=== PATIENT | female | born 1980 | race Caucasian/White ===

== ENCOUNTER 2020-03-22 10:52 | Emergency (ER) | payer OTHER, SELFPAY ==
[2020-03-22 10:54] VITALS: BP 139/107; PULSE 93; RESP 18; TEMP 36.2; O2SAT 98; BMI 40.7
--- NOTE | 2020-03-22 11:43 | ED.DCSUM_ITS ---
- ER Visit Summary Date of Service: 03/22/20 Chief Complaint: Laceration History of Present Illness: The patient is a 39 F who is right-hand dominant. She is unsure when her last tetanus shot was. She works at [employer]. She was washing a fryer which had been in the sink soaking overnight and it cut her right index finger. She reports she has an aching pain is 3 of 10 at worst and she is pain-free currently. Is worsened by movement and relieved by rest. Physical Examination: Vitals: Stable. Afebrile. General: Well-nourished and well-developed. Head: Normocephalic atraumatic. Neck: Supple, no lymphadenopathy. No JVD. Nontender. Cardiovascular: Regular rate and rhythm. No murmurs. Respiratory: No respiratory distress. Clear to auscultation bilaterally. Abdominal: Soft, nontender, nondistended, normal bowel sounds. No guarding, rebound, or peritoneal signs. Back: Nontender. Extremities: 1 cm superficial laceration over the DIP joint anteriorly. She is neuro vas intact distal to this Skin: Normal color, no rash. Neurologic: Alert and oriented ?3. Cranial nerves II through XII are intact. Normal strength and sensation. Psych: Normal affect. Emergency Department Course and Treatment: I had a prolonged discussion the patient by treatment options. She is decided to let this heal by secondary intention. I feel that is a reasonable course of action. Her tetanus was updated. Treatment Plan: Patient be discharged instructions to keep the wound clean, dry, and covered. Follow-up [facility] in 1 week for another exam. Return to the emergency department for any worsening symptoms. Disposition: To home in improved and stable condition. Impression: 1. Laceration right index finger, 1 cm, not repaired. This note was generated with [employer] software. It may contain incorrect words, spelling, and punctuation that were not noted in review of the chart prior to signing ED Disposition - Plan for ED Patient: Disposition: Home or Assisted Living Instructions: ED Laceration Small or Superficial Not Stitched Referrals: [facility] [GROUP OF PHYSICIANS] - 1 Week
[2020-03-22] MEDS: Diphth,Pertuss(Acell),Tet Vac 0.5 ML Vial IM (12:02)
== END 2020-03-22 12:30 | disposition home or self-care (01) ==
LOC: ED 12:24
PROVIDERS: Emergency Provider Emergency Medicine
DX: S61.210A Laceration without foreign body of right index finger without damage to nail, initial encounter (principal); W26.9XXA Contact with unspecified sharp object(s), initial encounter
CPT/HCPCS: 90471; 90715; 99283